=== PATIENT | male | born 1985 | race Caucasian/White ===

== ENCOUNTER 2018-03-15 17:35 | Emergency (ER) | payer SELFPAY ==
--- NOTE | 2018-03-15 19:23 | ER Document Report ---
ED Respiratory Problem - General Chief Complaint: Rib Pain Stated Complaint: RIB PAIN Time Seen by Provider: 03/15/18 18:35 Mode of Arrival: Ambulatory Information source: Patient Notes: 32-year-old male presents to ED for complaint of left rib pains. He states he fractured several of his ribs 3 weeks ago and they were just starting to heal when he was messing around with his friend today he felt a big pop has a lot of pain on the left side. He states he drank a half bottle of wine today trying to get the pain under control. TRAVEL OUTSIDE OF THE [place] IN LAST 30 DAYS: No - HPI Patient complains to provider of: Other - Left rib pain lateral Onset: This afternoon Duration: Intermittent episodes Initiating Event: Other - Recent left rib fractures reinjury Quality of pain: Sharp Severity: Moderate Pain Level: 4 Context: Smoker, Other - States he broke several ribs 3 weeks ago horsing around and and reinjured the ribs today Chest pain/discomfort: Left - Lateral lower ribs Sputum amount: None Associated symptoms: Other - Left rib pain hurts to take a deep breath recent rib fractures Worsened by: Movement of deep breath Similar symptoms previously: Yes Recently seen / treated by doctor: Yes - Related Data Allergies/Adverse Reactions: cyclobenzaprine [From Flexeril] Allergy (Verified 03/15/18 17:38) Past Medical History - General Information source: Patient - Social History Smoking Status: Current Every Day Smoker Cigarette use (# per day): Yes - Pack per day Smoking Education Provided: Yes - 4 minutes Frequency of alcohol use: Heavy - 6-8 beer a day. He has had a half while on the day Drug Abuse: None Lives with: Family Family History: Reviewed & Not Pertinent Patient has suicidal ideation: No Patient has homicidal ideation: No - Past Medical History Cardiac Medical History: Reports: None Pulmonary Medical History: Reports: Other - Recent rib fractures EENT Medical History: Reports: None Neurological Medical History: Reports: None Endocrine Medical History: Reports: None Renal/ Medical History: Reports: None Malignancy Medical History: Reports None GI Medical History: Reports: None Musculoskeltal Medical History: Reports Hx Musculoskeletal Trauma - Recent left rib fractures Skin Medical History: Reports None Psychiatric Medical History: Reports: None Traumatic Medical History: Reports: Hx Fractures - Ribs Infectious Medical History: Reports: None Surgical Hx: Negative Past Surgical History: Reports: None - Immunizations Immunizations up to date: Yes Review of Systems - Review of Systems Respiratory: Hurts to breathe, Other - Left lateral rib pain Musculoskeletal: Other - Left lateral rib pain Physical Exam - Vital signs Vitals: Temp Pulse Resp BP Pulse Ox 98.5 F 107 H 16 155/97 H 96 03/15/18 17:43 03/15/18 17:43 03/15/18 17:43 03/15/18 17:43 03/15/18 17:43 - Respiratory Respiratory status: No respiratory distress Chest status: Tender, Pain on movement, Pain with deep breathing, Other - Left lateral rib pain recent rib fractures Breath sounds: Normal Chest palpation: Normal Course - Re-evaluation Re-evalutation: 03/15/18 20:[address] Azul was called and confirmed that these were the same injuries that he had recently had. He states that the ribs look like they were recent but not new. X-ray results discussed with patient and written report given to patient. Patient was given instructions on incentive spirometry use of Tylenol and ibuprofen and the need to not drink alcohol on the days that he takes narcotics as this is dangerous. He was also given instructions on Tylenol and Motrin and ice packs. She verbalized understanding and acceptance of discharge planning. He was also given a list of local doctors and instructed to please follow-up with a doctor within the next 3-5 days. - Vital Signs Vital signs: Temp Pulse Resp BP Pulse Ox 98.2 F 92 14 151/88 H 96 03/15/18 20:36 03/15/18 20:36 03/15/18 20:36 03/15/18 20:36 03/15/18 20:36 - Diagnostic Test Radiology reviewed: Image reviewed, Reports reviewed Discharge - Discharge Clinical Impression: Ribs, multiple fractures Qualifiers: Encounter type: initial encounter Fracture type: closed Laterality: left Qualified Code(s): S22.42XA - Multiple fractures of ribs, left side, initial encounter for closed fracture HTN (hypertension) Qualifiers: Hypertension type: essential hypertension Qualified Code(s): I10 - Essential ( primary) hypertension Condition: Stable Disposition: HOME, SELF-CARE Instructions: Family Physicians / Practices, Use of Zfrt-Rne-Wftdcbr Ibuprofen ([facility]) Additional Instructions: You have stated you recently injured your ribs and then fell again today. Your x-ray shows 3 recently fractured ribs that are nondisplaced but are starting to heal. Rib Injuries and Fractures You have been diagnosed as having either bruised or broken ribs. These two injuries are treated in the same way. It will usually take four to six weeks for these injured ribs to heal. Sometimes, rib belts or anesthetic injections of the chest wall help reduce the pain. If you are using a rib belt, you should cough or take a deep breath at least every hour or two to prevent lung complications. You should not engage in any strenuous physical activity until released by your physician. The usual rule is "if it hurts, don't do it." Rib fractures can lead to serious lung complications including lung collapse, hemorrhage, and pneumonia. You should call the physician or return at once if any of the following occur: (1) Fever or chills. (2) Persistent cough, coughing up blood, or shortness of breath. (3) Increasing pain. (4) Weakness, lightheadedness, or fainting. USE OF TYLENOL (ACETAMINOPHEN): Acetaminophen may be taken for pain relief or fever control. It's much safer than aspirin, offering a wider range of "safe" dosages. It is safe during . Some brand names are Tylenol, Panadol, Datril, Anacin 3, Tempra, and Liquiprin. Acetaminophen can be repeated every four hours. The following are maximum recommended dosages: WEIGHT Dose Drops Elixir Chewable( 80mg) (LBS.) drprs=droppers tsp=teaspoon 6 40 mg 0.4 ml (1/2) 6-11 80 mg 0.8 ml (full) tsp 1 tab 12-16 120 mg 1 1/2 drprs 3/4 tsp 1 1/2 tabs 17-23 160 mg 2 drprs 1 tsp 2 tabs 24-30 240 mg 3 drprs 1 1/2 tsp 3 tabs 30-35 320 mg 2 tsp 4 tabs 36-41 360 mg 2 1/4 tsp 4 1/2 tabs 42-47 400 mg 2 1/2 tsp 5 tabs 48-53 480 mg 3 tsp 6 tabs 54-59 520 mg 3 1/4 tsp 6 1/2 tabs 60-64 560 mg 3 1/2 tsp 7 tabs 65-70 600 mg 3 3/4 tsp 7 1/2 tabs 71-76 640 mg 4 tsp 8 tabs 77-82 720 mg 4 1/2 tsp 9 tabs 83-88 800 mg 5 tsp 10 tabs >89 pounds or adults 650 mg to 900 mg Acetaminophen can be repeated every four hours. Maximum dose not to exceed 4000 mg a day. These maximum recommended dosages are slightly higher than the dosages written on the product container, but these dosages are very safe and below the toxic dosage for acetaminophen. ICE PACKS: Apply ice packs frequently against the painful area. Many different schedules are recommended, such as "20 minutes on, 20 minutes off" or "one hour ice, two hours rest." If you need to work, you may need to go longer between ice treatments. You should plan to have the area ice packed AT LEAST one fourth of the time. The ice should be applied over the wrap, tape, or splint, or over a layer of cloth -- not directly against the skin. Some ice bags have a built-in cloth and can be put directly on the skin. ORAL NARCOTIC MEDICATION: You have been given a prescription for pain control. This medication is a narcotic. It's best taken with food, as nausea can result if taken on an empty stomach. Don't operate machinery or drive within six hours of taking this medication. Do not combine this medicine with alcohol, or with any medication which can cause sedation (such as cold tablets or sleeping pills) unless you get permission from the physician. Narcotics tend to cause constipation. If possible, drink plenty of fluids and eat a diet high in fiber and fruits. FOLLOW-UP CARE: If you have been referred to a physician for follow-up care, call the physician s office for an appointment as you were instructed or within the next two days. If you experience worsening or a significant change in your symptoms, notify the physician immediately or return to the Emergency Department at any time for re-evaluation. Forms: Elevated Blood Pressure, Smoking Cessation Education, Return to Work
--- NOTE | 2018-03-15 20:10 | RADIOLOGY REPORT (SQ) ---
EXAM DESCRIPTION: RIBS LEFT W/PA CHEST COMPLETED DATE/TIME: 03/15/2018 7:36 pm REASON FOR STUDY: rib pain recent fracture reinjured COMPARISON: None. TECHNIQUE: Frontal view of the chest and additional views of the left ribs acquired. NUMBER OF VIEWS: Three views LIMITATIONS: None. FINDINGS: FRONTAL CXR: No pneumothorax. No pleural effusion. No atelectasis or infiltrates. RIBS: There is subtle findings in the 5th, 6th, and 7th ribs laterally suggesting nondisplaced fractu res. OTHER: No other significant finding. IMPRESSION: Possible nondisplaced fractures of the left 5th through 7th ribs. COMMENT: SITE OF TRAUMA/COMPLAINT MARKED/STAMP COMPLETED: YES. TECHNICAL DOCUMENTATION: JOB ID: [id number] [employer]- All Rights Reserved Reading location - IP/workstation name: [email or web address]
[2018-03-15] MEDS ORDERED: HYDROCODONE/ACETAMINOPHEN 5-325 MG (6 TAB/ER DISP) PO PRN (20:26)
[2018-03-15 20:39] VITALS: BP 151/88
== END 2018-03-15 20:40 | disposition home or self-care (01) ==
LOC: ER 17:35
DX: S22.42XA Multiple fractures of ribs, left side, initial encounter for closed fracture (principal); R07.81 Pleurodynia; X58.XXXA Exposure to other specified factors, initial encounter; I10 Essential (primary) hypertension; F17.210 Nicotine dependence, cigarettes, uncomplicated; Z71.6 Tobacco abuse counseling; Z88.8 Allergy status to other drugs, medicaments and biological substances
CPT/HCPCS: 99283; 99406

== ENCOUNTER 2019-11-05 20:54 | Emergency (ER) | payer SELFPAY ==
--- NOTE | 2019-11-05 21:08 | ER Document Report ---
ED Medical Screen (RME) - General Chief Complaint: Wrist Injury Stated Complaint: LEFT WRIST INJURY Notes: Patient is a 34-year-old white male with no significant past medical history presents to the emergency department with a chief complaint of left wrist pain and swelling after a fall that occurred prior to arrival. The patient states that he slipped on some baking flour that was on the floor causing him to fall onto an outstretched hand. He admits to pain and swelling to the dorsum of the distal lateral left wrist. Denies any numbness tingling weakness but admits to some decreased range of motion secondary to pain and swelling. I have treated and performed a rapid initial assessment of this patient. A comprehensive ED assessment and evaluation of the patient, analysis of test results and completion of medical decision making process will be conducted by additional ED providers. PHYSICAL EXAMINATION: GENERAL: Well-appearing, well-nourished and in no acute distress. A&Ox4. Answers questions appropriately. TRAVEL OUTSIDE OF THE [place] IN LAST 30 DAYS: No - Related Data Allergies/Adverse Reactions: cyclobenzaprine [From Flexeril] Allergy (Verified 03/15/18 17:38) Past Medical History - Social History Chew tobacco use (# tins/day): No Frequency of alcohol use: Heavy Drug Abuse: Marijuana Renal/ Medical History: Denies: Hx Peritoneal Dialysis Musculoskeltal Medical History: Reports Hx Musculoskeletal Trauma - Recent left rib fractures Traumatic Medical History: Reports: Hx Fractures - Ribs - Immunizations Immunizations up to date: Yes
--- NOTE | 2019-11-05 21:32 | RADIOLOGY REPORT (SQ) ---
EXAM DESCRIPTION: XR WRIST 3 OR MORE VIEWS COMPLETED DATE/TME: 11/05/2019 21:06 CLINICAL HISTORY: 34 years, Male, pain, fall COMPARISON: None. NUMBER OF VIEWS: Three TECHNIQUE: Frontal, oblique, and lateral radiographs were obtained LIMITATIONS: None. FINDINGS: Visualized is an essentially nondisplaced fracture involving the distal radial metaphysis. It is uncertain whether the fracture plane emanates the radiocarpal joint. No additional osseous anomalies are appreciated. IMPRESSION: Essentially nondisplaced fracture involving the distal radial metaphysis. It is uncertain whether the fracture plane emanates into the radiocarpal joint. copyright 2010 [employer]- All Rights Reserved
[2019-11-05] MEDS ORDERED: HYDROCODONE/ACETAMINOPHEN 5-325 MG TABLET PO ONE (22:08)
--- NOTE | 2019-11-05 22:09 | ER Document Report ---
ED Hand/Wrist Injury - General Chief Complaint: Wrist Injury Stated Complaint: LEFT WRIST INJURY Time Seen by Provider: 11/05/19 21:57 Notes: CHIEF COMPLAINT: Left wrist pain after fall HPI: 34-year-old male who is right-hand dominant presenting to the emergency department for evaluation of left wrist pain after a mechanical fall today. Patient slipped at work while wearing socks landing with his left wrist down. He complains of pain in the distal radial region with some swelling. Denies numbness or tingling in the fingertips denies elbow injury ROS: See HPI - all other systems were reviewed and are otherwise negative Constitutional: no fever Integumentary: no rash Allergy: no hives Musculoskeletal: + extremity pain or swelling Neurological: no numbness/tingling, no weakness MEDICATIONS: I agree with the patient medications as charted by the RN. ALLERGIES: I agree with the allergies as charted by the RN. PAST MEDICAL HISTORY/PAST SURGICAL HISTORY: Reviewed and agree as charted by RN. SOCIAL HISTORY: Reviewed and agree as charted by RN. FAMILY HISTORY: No significant familial comorbid conditions directly related to patient complaint EXAM: Reviewed vital signs as charted by RN. CONSTITUTIONAL: Alert and oriented and responds appropriately to questions. Well-appearing; well-nourished, mild distress secondary to pain HEAD: Normocephalic; atraumatic EYES: PERRL; Conjunctivae clear, sclerae non-icteric ENT: normal nose; no rhinorrhea; moist mucous membranes NECK: Supple without meningismus; non-tender CARD: symmetric distal pulses RESP: Normal chest excursion without splinting or tachypnea ABD/GI: non-distended. BACK: The back appears normal EXT: There is soft tissue swelling around the left wrist with tenderness over the distal radius on palpation. Able to flex extend the fingers of the left hand and slightly abduct the left thumb. Radial and ulnar pulses are present in the left wrist. There is no discomfort over the radial head of the left arm on palpation or range of motion SKIN: Normal color for age and race; warm; dry; good turgor; no acute lesions noted NEURO: Moves all extremities equally; Motor and sensory function intact PSYCH: The patient's mood and manner are appropriate. Grooming and personal hygiene are appropriate. MDM: 34-year-old male with a nondisplaced distal radial fracture of the left wrist. Will place in an immobilizing splint refer to orthopedics. Patient s tates he can take Vicodin for pain TRAVEL OUTSIDE OF THE [place] IN LAST 30 DAYS: No - Related Data Allergies/Adverse Reactions: cyclobenzaprine [From Flexeril] Allergy (Verified 03/15/18 17:38) oxycodone Allergy (Verified 11/05/19 21:07) Past Medical History - Social History Smoking Status: Current Every Day Smoker Chew tobacco use (# tins/day): No Frequency of alcohol use: Heavy Drug Abuse: Marijuana Family History: Reviewed & Not Pertinent Patient has suicidal ideation: No Patient has homicidal ideation: No Renal/ Medical History: Denies: Hx Peritoneal Dialysis Musculoskeletal Medical History: Reports Hx Musculoskeletal Trauma - Recent left rib fractures Traumatic Medical History: Reports: Hx Fractures - Ribs - Immunizations Immunizations up to date: Yes Physical Exam - Vital signs Vitals: Temp Pulse Resp BP Pulse Ox 98.1 F 99 16 148/100 H 97 11/05/19 20:59 11/05/19 20:59 11/05/19 20:59 11/05/19 20:59 11/05/19 20:59 Course - Vital Signs Vital signs: Temp Pulse Resp BP Pulse Ox 98.1 F 99 16 148/100 H 97 11/05/19 20:59 11/05/19 20:59 11/05/19 20:59 11/05/19 20:59 11/05/19 20:59 Procedures - Immobilization Left Distal Wrist Time completed: 22:22 Pre-Proc Neuro Vasc Exam: Normal Immobilizer type: Volar splint Performed by: Other Post-Proc Neuro Vasc Exam: Normal, Unchanged from pre-exam Alignment checked and good: Yes Discharge - Discharge Clinical Impression: Fall Qualifiers: Encounter type: initial encounter Qualified Code(s): W19.XXXA - Unspecified fall, initial encounter Distal radius fracture, left Qualifiers: Encounter type: initial encounter Fracture type: closed Fracture morphology: unspecified fracture morphology Qualified Code(s): S52.502A - Unspecified fracture of the lower end of left radius, initial encounter for closed fracture Condition: Stable Disposition: HOME, SELF-CARE Instructions: Splint Precautions ([facility]), Fractured Radius ([facility]) Additional Instructions: 1. splint for comfort 2. medicines for pain as prescribed, no driving on narcotics 3. ice the hand three times daily for swelling for 10 minutes at a time, do not place ice directly on skin 4. follow up with orthopedics for further evaluation and treatment, call for appt. Prescriptions: Ibuprofen [Motrin 600 Mg Tablet] 600 mg PO Q6H #15 tablet Hydrocodone/Acetaminophen [Harriet 5-325 mg Tablet] 1 tab PO Q4 PRN #15 tablet PRN Reason: Referrals: GEOVANI ENGLISH MD [ACTIVE PROVISIONAL STAFF] - Follow up as needed
[2019-11-05] MEDS ORDERED: HYDROCODONE/ACETAMINOPHEN 5-325 MG (6 TAB/ER DISP) PO PRN (22:25)
[2019-11-05 22:56] VITALS: BP 163/97
== END 2019-11-05 23:02 | disposition home or self-care (01) ==
LOC: ER 20:54
DX: S52.592A Other fractures of lower end of left radius, initial encounter for closed fracture (principal); W01.0XXA Fall on same level from slipping, tripping and stumbling without subsequent striking against object, initial encounter; Y92.511 Restaurant or cafe as the place of occurrence of the external cause; Y99.0 Civilian activity done for income or pay; F17.200 Nicotine dependence, unspecified, uncomplicated; F12.10 Cannabis abuse, uncomplicated; Z88.8 Allergy status to other drugs, medicaments and biological substances; Z88.6 Allergy status to analgesic agent; Z88.5 Allergy status to narcotic agent
CPT/HCPCS: 99283